=== PATIENT | male | born 1970 | race Caucasian/White ===

== ENCOUNTER → 2022-10-03 | Outpatient (CLI) | payer SELFPAY ==
--- NOTE | 2022-10-03 14:51 | NM ---
EXAMINATION TYPE: NM bone scan whole body DATE OF EXAM: 10/03/2022 COMPARISON: NONE CLINICAL INDICATION: Male, 52 years old with history of M54.59; Delayed whole-body scanning was performed following the injection of 23.1 mCi Tc 99m MDP. Images acq uired 3 hours post injection. FINDINGS: There is mild intensity uptake seen at the thoracolumbar junction and throughout the thoracic spine a nd L5-S1. Findings are likely degenerative. Abnormal uptake involving the feet, knees, shoulders likely related to mild posterior arthritic way es. IMPRESSION: 1. Findings are suggestive of multilevel thoracic and lower lumbar degenerative disc disease. X-ray c orrelation recommended.
== END | disposition home or self-care (01) ==
LOC: RADNMMAIN 09:54
PROVIDERS: ATTEND Orthopaedic Surgery Orthopaedic Surgery of the Spine
DX: M51.16 Intervertebral disc disorders with radiculopathy, lumbar region (principal); M79.671 Pain in right foot; M79.672 Pain in left foot; M62.830 Muscle spasm of back; R20.2 Paresthesia of skin
CPT/HCPCS: 78306; A9503